=== PATIENT | male | born 1965 | race Caucasian/White ===

== ENCOUNTER 2017-08-13 11:41 | Outpatient (CLI) | payer MEDICARE, MEDICAID ==
[~2017-08-13 11:41] MED LIST: AMBIEN10 MG ORAL; ANDROGEL2.5 GM TD; LEVAQUIN500 MG ORAL; NEURONTIN600 MG ORAL; NORCO 5-325 TA1 EACH ORAL; SEROSTIM6 M1 SQ; STRIBILD TABLE1 EACH PO; VALIUM5 MG ORAL
--- NOTE | 2017-08-13 14:07 | Diagnostic Imaging Report ---
Indication: Pain Findings: 3 views of the right wrist were obtained. There is an ununited fracture of the scaphoid waist. This is not a new injury. There is about a 3 mm distraction between the 2 ends of the scaphoid bone. There is probable sclerosis of the distal pole suggestive of AVN. There is slight increased distance between the scaphoid and lunate. Slight dorsal tilt of the lunate also noted. Degenerative changes of the radioscaphoid joint noted with narrowing and osteophytes. 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 Scapholunate dissociation suspected but slight dorsal tilt of the lunate.
== END 2017-08-13 13:41 | disposition home or self-care (01) ==
LOC: RAD 11:41
DX: M25.531 Pain in right wrist (principal)